=== PATIENT | male | born 1935 | race Caucasian/White ===

== ENCOUNTER 2022-04-01 10:38 | Emergency (ER) | payer MEDICARE, SELFPAY ==
--- NOTE | ~2022-04-01 | XR_ITS ---
EXAMINATION: XR finger 5th LT min 2V DATE: 04/01/2022 11:29 INDICATION: Left fifth digit pain post fall TECHNIQUE: Dorsal palmar, lateral and oblique views of the left fifth digit were obtained COMPARISON: None FINDINGS: Dorsal dislocation at the left fifth proximal interphalangeal joint. Alignment and remainder the visu alized left hand is normal. No fracture. 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 Mi ld osteoarthritis at the triscaphe and at multiple interphalangeal joints. Likely degenerative subart icular cystic changes at the proximal pole of the scaphoid and proximal aspect of the hamate. IMPRESSION: 1. Dorsal dislocation at the left fifth proximal interphalangeal joint. Reviewed, dictated and finalized at location B.
[2022-04-01 10:50] VITALS: BP 148/79; PULSE 92; RESP 16; TEMP 36.4; O2SAT 98
--- NOTE | 2022-04-01 11:08 | ED.HEATRA ---
HPI - Head Injury General Chief complaint: Trauma Stated complaint: Laceration on head and broken finger Time Seen by Provider: 04/01/22 11:08 Source: patient Mode of arrival: ambulatory Limitations: no limitations History of Present Illness HPI Narrative: 86-year-old male presents with complaint of laceration to forehead, pain to left fifth digit. Patient states that he walked approximately a mile in the park and then sat down on a bench. When standing up he became dizzy and fell forward. Bone is visible from the left fifth finger. Denies LOC. States his friend helped him get up. He states that he has been having frequent dizzy spells. Does not have a primary care physician. Denies headache, nausea vomiting. No vision changes. All systems reviewed and negative except as noted above. Related Data Home Medications Medication Instructions Recorded Confirmed Vitamins 04/01/22 Allergies Allergy/AdvReac Type Severity Reaction Status Date / Time No Known Allergies Allergy Unverified 12/11/17 08:10 Review of Systems Review of Systems: CONSTITUTIONAL: Denies fever, chills, or sweats. EYES: Denies visual changes, redness, or discharge. ENT: Denies rhinorrhea, congestion, sore throat, or otalgia. CARDIOVASCULAR: Denies chest pain, palpitations, or edema. RESPIRATORY: Denies cough or dyspnea. GASTROINTESTINAL: Denies abdominal pain, nausea, vomiting, or diarrhea. GENITOURINARY: Denies dysuria or hematuria. SKIN: Denies rash or itching. Reports laceration to forehead. MUSCULOSKELETAL: Denies back pain, joint pain, or myalgia. Reports pain to left fifth digit. NEUROLOGIC: Denies headache, numbness, or weakness. PSYCHIATRIC: Denies anxiety or depression. All other systems reviewed are negative, except as documented in HPI. PMFSH Comments At time of signature, agree with nursing past medical, surgical, social and family history. There is no relevant family history pertinent to the presenting complaint. Exam Narrative: GENERAL: This is a well-nourished, well-developed patient, in no apparent distress. HEAD: normocephalic, atraumatic. EYES: PERRL. Sclera clear/white. Vision is grossly intact. Extraocular motions intact. EARS: External ears normal NOSE: External nose normal NECK: Neck supple, non-tender without lymphadenopathy, masses or thyromegaly. CARDIOVASCULAR: Regular rate and rhythm without murmurs, gallops, or rubs. RESPIRATORY: Clear to auscultation. Breath sounds equal bilaterally. No wheezes, rales, or rhonchi. SKIN: warm, Dry, intact with no suspicious lesions or rash, good texture and turgor. Approximate 2 cm laceration to left eyebrow. NEURO: awake, alert, and oriented to person, place and time. There were no obvious focal neurologic abnormalities. EXTREMITIES: No joint tenderness, effusion, or edema noted. Open dislocation at the PIP to left little finger. Bleeding controlled. Course Course Level of Care: Express Care Visit Vital Signs Vital signs: Vital Signs Temperature 36.4 C 04/01/22 10:50 Pulse Rate 92 04/01/22 10:50 Respiratory Rate 16 04/01/22 10:50 Blood Pressure 148/79 H 04/01/22 10:50 Pulse Oximetry 98 04/01/22 10:50 Oxygen Delivery Room Air 04/01/22 10:50 Temperature 36.4 C 04/01/22 10:50 Pulse Rate 92 04/01/22 10:50 Respiratory Rate 16 04/01/22 10:50 Blood Pressure 148/79 H 04/01/22 10:50 Pulse Oximetry 98 04/01/22 10:50 Oxygen Delivery Room Air 04/01/22 10:50 Reviewed Transfer Transfered to: [facility] Transportation: Other (Private car) Transfer rationale: Transfer to [facility] ER for head CT, reduction of left of left little finger dislocation Accepting physician: Dr. Malone MDM - Head Injury MDM Narrative Medical decision making narrative: Patient is aware of diagnosis, understands and agrees to treatment plan. Anticipatory guidance given. Patient agrees to follow-up as directed and is aware of reaso
--- NOTE | 2022-04-01 11:29 | PC.NURSE ---
was evaluated by fleet director at 1110 and pt aware of need for higher level of care and requested jay er, but said will f/u with other er if needed. has friend here to provide transportation.
== END 2022-04-01 11:36 | disposition short-term general hospital (02) ==
PROVIDERS: Emergency Provider Nurse Practitioner Family
DX: S63.287A Dislocation of proximal interphalangeal joint of left little finger, initial encounter (principal); S09.90XA Unspecified injury of head, initial encounter; S01.112A Laceration without foreign body of left eyelid and periocular area, initial encounter; W19.XXXA Unspecified fall, initial encounter; I25.2 Old myocardial infarction; Z86.711 Personal history of pulmonary embolism
CPT/HCPCS: 73140; 99213; G0463

== ENCOUNTER 2023-11-16 10:12 | Emergency (ER) | payer MEDICARE, SELFPAY ==
--- NOTE | ~2023-11-16 | XR_ITS ---
EXAMINATION: XR ribs LT 2V DATE: 11/16/2023 11:26 INDICATION: Left lower posterior rib pain. TECHNIQUE: 2 views of the left ribs on 3 radiographs were obtained. COMPARISON: Chest 2 views 05/19/2009, CT abdomen and pelvis 09/19/13 FINDINGS: Calcified left lung nodules and calcified left hilar and mediastinal lymph nodes are consis tent with old granulomatous disease. No left-sided pleural effusion or pneumothorax. The heart size i s normal. IMPRESSION: 1. No rib fracture. Reviewed, dictated and finalized at location A. NSIVE SECONDARY COACH IMPRESSION: 1. No rib fracture.
[2023-11-16 10:25] VITALS: BP 130/76; PULSE 53; RESP 16; TEMP 36; O2SAT 99
--- NOTE | 2023-11-16 11:46 | ED.BACK ---
HPI - Back Pain/Injury General Chief Complaint: Back Pain/Injury Stated Complaint: Back Pain Time Seen by Provider: 11/16/23 11:40 Source: patient and RN notes reviewed Mode of arrival: ambulatory Limitations: no limitations History of Present Illness HPI Narrative: Patient presents today complaining of left posterior rib pain. He tripped on a fan on his floor at home and fell, striking his ribs on a window sill approximately 12 days ago. Reports pain is relatively mild, but does wax and wane. He has taken no medication for symptoms prior to arrival. Pain does not increase with deep breath Related Data Home Medications Medication Instructions Recorded Confirmed CoQ-10 1 tab-cap DAILY 11/16/23 11/16/23 arginine (L-arginine) 1 cap DAILY 11/16/23 11/16/23 Allergies Allergy/AdvReac Type Severity Reaction Status Date / Time No Known Allergies Allergy Unverified 12/11/17 08:10 Review of Systems Review of Systems: CONSTITUTIONAL: Denies body aches, fever, chills, or sweats. EYES: Denies visual changes, redness, or discharge. ENT: Denies rhinorrhea, congestion, sore throat, or otalgia. CARDIOVASCULAR: Denies chest pain, palpitations, or edema. RESPIRATORY: Denies cough or dyspnea. GASTROINTESTINAL: Denies abdominal pain, nausea, vomiting, or diarrhea. GENITOURINARY: Denies dysuria or hematuria. SKIN: Denies rash, itching, or wounds. MUSCULOSKELETAL: + left posterior rib pain NEUROLOGIC: Denies headache, numbness, tingling, or weakness. PSYCH: Denies depression or anxiety. PMFSH Comments At time of signature, I have reviewed and agree with nursing past medical, surgical, social and family history unless otherwise noted. Please see nursing chart for further information. There is no relevant family history pertinent to the presenting complaint Exam Narrative: GENERAL: Well-appearing, well-nourished, and in no acute distress. HEAD: Normocephalic, atraumatic. EYES: EOMI. No redness or drainage. Conjunctivae normal. ENT: Mucous membranes pink and moist. NECK: Normal AROM. CHEST: No respiratory distress. Clear to auscultation. HEART: Regular rate and rhythm. No murmur appreciated. Normal peripheral pulses. MUSCULOSKELETAL: Small area of mild point tenderness to the mid left posterior ribs. No crepitus, step-off, bruising, edema noted. EXTREMITIES: Normal range of motion. No edema. SKIN: Warm, dry, no rash. Capillary refill normal. Normal skin turgor. NEURO: No focal deficits. Alert and oriented x3. Gait steady. PSYCH: Normal affect. No signs of depression or anxiety. Course Course Level of Care: Express Care Visit Vital Signs Vital signs: Vital Signs Temperature 96.8 F L 11/16/23 10:25 Pulse Rate 53 L 11/16/23 10:25 Respiratory Rate 16 11/16/23 10:25 Blood Pressure 130/76 11/16/23 10:25 Pulse Oximetry 99 11/16/23 10:25 Oxygen Delivery Room Air 11/16/23 10:25 Temperature 96.8 F L 11/16/23 10:25 Pulse Rate 53 L 11/16/23 10:25 Respiratory Rate 16 11/16/23 10:25 Blood Pressure 130/76 11/16/23 10:25 Pulse Oximetry 99 11/16/23 10:25 Oxygen Delivery Room Air 11/16/23 10:25 Reviewed MDM - Back Pain/Injury MDM Narrative Medical decision making narrative: X-ray is negative for fracture. Discussed using Tylenol and [id number] lidocaine patches for discomfort with PCP follow-up if symptoms do not improve. Anticipatory guidance given. Differential Diagnosis Differential diagnosis: Likely strain of lumbar region and other (Rib fracture, rib contusion) Imaging Data Radiologist's impression: ITS Impressions Ribs X-Ray 11/16/23 12:01 IMPRESSION: 1. No rib fracture. Critical Care Time Critical Care Time Critical Care Time: No Discharge Plan Discharge Clinical Impression: Contusion of rib on left side Qualifiers: Encounter type: initial encounter Qualified Code(s): S20.212A - Contusion of left front wall of thorax, initial e
== END 2023-11-16 12:21 | disposition home or self-care (01) ==
PROVIDERS: Emergency Provider Nurse Practitioner
DX: S20.222A Contusion of left back wall of thorax, initial encounter (principal); W01.198A Fall on same level from slipping, tripping and stumbling with subsequent striking against other object, initial encounter; I25.2 Old myocardial infarction; Z86.711 Personal history of pulmonary embolism
CPT/HCPCS: 71100; 99213; G0463

== ENCOUNTER 2024-05-27 12:03 | Emergency (ER) | payer MEDICARE, SELFPAY ==
--- NOTE | ~2024-05-27 | CT_ITS ---
CT brain wo con Ordering provider: Juan Aguilar MD History: 88 years Male with . head injury . Comparison: None. Technique: CT of the head without contrast. Radiation reduction technique utilized. DLP is 681 mGy-cm. FINDINGS: BRAIN PARENCHYMA AND CSF SPACES: Mild leukoaraiosis and diffuse cortical atrophy. Mild atheromatous d isease. Hypodensity in the right temporal lobe with soft tissue density which is calcified measuring 1.2 cm. This most likely a meningioma. No midline shift, mass effect or hemorrhage. The brain parenc hyma and CSF spaces are otherwise normal. VISUALIZED PARANASAL SINUSES: Well aerated. MASTOIDS: Well aerated. BONES: The bones appear intact. SOFT TISSUES: Visualized nasopharynx is normal. Superficial soft tissues are normal. IMPRESSION: No acute intracranial findings. Vasogenic edema in the right temporal lobe with highly suggestive meningioma MRI is advised Reviewed, dictated and finalized at location A. IMPRESSION: No acute intracranial findings. Vasogenic edema in the right temporal lobe with highly suggestive meningioma MR I is advised
--- NOTE | ~2024-05-27 | XR_ITS ---
EXAMINATION: XR chest 2V DATE: 05/27/2024 14:23 INDICATION: Fall. TECHNIQUE: Frontal and lateral views of the chest were obtained. COMPARISON: CT abdomen and pelvis 09/19/2013 FINDINGS: There is no pneumonia, pleural effusion, or pneumothorax. Calcified left hilar lymph nodes are consistent with old granulomatous disease. The heart size is normal. There are fracture deformiti es of right sixth-ninth ribs. IMPRESSION: 1. No acute cardiopulmonary disease. 2. Age-indeterminate fracture deformities of right 6th-9th ribs. Reviewed, dictated and finalized at location A.
[2024-05-27 12:29] VITALS: BP 142/76; PULSE 100; RESP 19; TEMP 36.9; O2SAT 95
[2024-05-27] MEDS: TETANUS,DIPHTHERIA,AC PERTUSSIS ADULT (0.5 ML) BOOSTRIX IM (14:08)
[2024-05-27 14:20] LABS: Basophils Absolute Auto 0.1 K/mm3 (0.0-0.1); Basophils Percent Auto 0.9 % (0.2-1.2); Eosinophils Absolute Auto 0.1 K/mm3 (0-0.3); Eosinophils Percent Auto 1.1 % (0-4.4); Hematocrit 44.3 % (42.0-52.0); Hemoglobin 14.9 g/dL (14.0-18.0); Immature Granulocyte Absolute 0.05 K/mm3 (0.00-0.031); Immature Granulocyte Percent A 0.5 % (0-0.5); Lymphocytes Absolute Auto 1.91 K/mm3 (0.9-3.2); Lymphocytes Percent Auto 18.2 % (18.3-44.2); Mean Corpuscular HGB Conc 33.6 g/dl (32-36); Mean Corpuscular Hemoglobin 31.5 pg (26-34); Mean Corpuscular Volume 93.7 fl (80-100); Mean Platelet Volume 10.4 fl (7.4-10.4); Neutrophils Absolute Auto 7.4 K/mm3 (1.3-6.7); Neutrophils Percent Auto 70.3 % (45.5-73.1); Platelet Count Result 164 k/mm3 (150-375); Red Blood Count 4.73 M/mm3 (4.6-6.20); Red Cell Distribution Width 14.3 % (11.5-14.5); White Blood Count 10.5 K/mm3 (4.5-10.0)
[2024-05-27 14:31] LABS: Alanine Aminotransferase 16 U/L (6-50); Albumin Level 4.6 g/dL (3.5-5.1); Alkaline Phosphatase 63 U/L (38-126); Anion Gap 9 mmol/L (4-12); Aspartate Amino Transferase 31 U/L (17-59); Bilirubin,Total 1.2 mg/dL (0.2-1.3); Blood Urea Nitrogen 14 mg/dL (9-20); Calcium 9.6 mg/dL (8.4-10.2); Carbon Dioxide 31 mmol/L (22-30); Chloride 97 mmol/L (98-107); Estimated CRCL calculation 44 ml/min; Estimated Glomerular Filt Rate > 60; Glucose 106 mg/dL (65-110); Sodium 137 mmol/L (137-145)
[2024-05-27 14:55] VITALS: BP 140/85; BP 150/99; BP 154/94; PULSE 90; PULSE 93; PULSE 94
--- NOTE | 2024-05-27 15:06 | ED.GENADULT ---
HPI - General Adult General Chief complaint: Wound/Laceration Stated complaint: laceration Time Seen by Provider: 05/27/24 12:38 History of Present Illness HPI narrative: Patient is an 88-year-old male who presents ER for evaluation after falling and striking his face. Patient fell 2 days ago are the worst trach and walking through the parking lot. He struck the left face on the ground. No LOC. No headache. He is having a bandage placed over his eyebrow and sent home. He woke up in the morning with blood dried to his face. No headache or change in vision. 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 Denies any nausea or vomiting. He is walking with a cane today which he typically does not. Reports this was his 2nd fall in 1 week which is abnormal for him. Related Data Home Medications Medication Instructions Recorded Confirmed CoQ-10 1 tab-cap DAILY 11/16/23 11/16/23 arginine (L-arginine) 1 cap DAILY 11/16/23 11/16/23 Allergies Allergy/AdvReac Type Severity Reaction Status Date / Time No Known Allergies Allergy Verified 05/27/24 12:36 Review of Systems Review of Systems: All systems reviewed & are unremarkable except as noted in HPI and below Constitutional: Constitutional: Reports no additional constitutional complaints Eyes: Comments: Chronic vision abnormality left eye ENT: Reports system reviewed and no additional complaints, except as documented Cardiovascular: Cardiovascular: Reports no additional cardiovascular complaints Respiratory: Respiratory: Reports no additional respiratory complaints Integumentary/Breasts: Skin/Breast: Reports system reviewed and no additional complaints, except as docu PMFSH Past Medical History Medical History (Updated 05/27/24 @ 15:39 by Juan Aguilar MD) Macular degeneration Exam Narrative: GENERAL: Well-appearing, well-nourished, and in no acute distress. HEAD: Normocephalic, scab left parietal region. EYES: EOMI. Healing abrasion left supraorbital ridge. ENT: Mucous membranes moist. CHEST: Clear to auscultation. No respiratory distress. HEART: Regular rate and rhythm. Normal peripheral pulses. EXTREMITIES: Normal range of motion. No edema. SKIN: Warm, dry, no rash. NEURO: Walks with a steady gait. No upper lower extremity drift. 5/5 strength in lower and upper extremities. No facial asymmetry. Alert and oriented x3. PSYCH: Normal mood and affect. Course Course Emergency Course: Discussed with neurosurgery Dr. Kamara, would recommend MRI the history treatment until results. Discussed with patient admission for observation and MRI for further evaluation. Patient declines. I have interviewed and examined the patient. I have determined that the patient has the capacity to understand the information relevant to their care. The patient also understands the consequences of the various options after we discussed relevant information. I feel that the patient is able to understand the relevant information and responds appropriately to questions. I have attempted to persuade the patient to stay to receive care. The patient understands by leaving there is a possibility of , disability, or serious injury. Despite the above information the patient has made the decision to leave against medical advice. I have attempted to persuade the patient to follow up with a physician DANA. I have also notified the patient they may return at any time to the ED for further care. Vital Signs Vital signs: Vital Signs Temperature 98.4 F 05/27/24 12:29 Pulse Rate 100 05/27/24 12:29 Respiratory Rate 05/27/24 12:29 Blood Pressure 142/76 H 05/27/24 12:29 Pulse Oximetry 95 05/27/24 12:29 Oxygen Delivery Room Air 05/27/24 12:29 Temperature 98.4 F 05/27/24 12:29 Pulse Rate 94 05/27/24 14:55 Respiratory Rate 05/27/24 12:29 Blood Pressure 140/85 05/27/24 14:55 Pulse Oximetry 95 05/27/24 12:
== END 2024-05-27 15:48 | disposition left against medical advice (07) ==
PROVIDERS: Emergency Provider Emergency Medicine
DX: S00.212A Abrasion of left eyelid and periocular area, initial encounter (principal); D32.0 Benign neoplasm of cerebral meninges; W19.XXXA Unspecified fall, initial encounter; Z23 Encounter for immunization; H35.30 Unspecified macular degeneration
CPT/HCPCS: 36415; 70450; 71046; 80053; 85025; 90471; 90715; 99284